=== PATIENT | male | born 1960 | race Asian ===

== ENCOUNTER 2020-02-27 15:56 | Emergency (ER) | payer SELFPAY ==
[~2020-02-27] VITALS: Ht 182.9 cm; Wt 107.0 kg
[2020-02-27 16:06] VITALS: BP 128/83
== END 2020-02-27 17:14 | disposition home or self-care (01) ==
LOC: ED 16:49
DX: M54.32 Sciatica, left side (principal); M79.662 Pain in left lower leg; F17.210 Nicotine dependence, cigarettes, uncomplicated
CPT/HCPCS: 99283; 99406